=== PATIENT | female | born 1970 | race Two or more races ===

== ENCOUNTER 2017-01-09 20:51 | Emergency (ER) | payer OTHER ==
[~2017-01-09] VITALS: Ht 154.9 cm; Wt 70.0 kg
[2017-01-09 21:17] VITALS: BP 156/68
[2017-01-09 22:15] LABS: Urine Bilirubin Negative (Negative); Urine Color Yellow (Yellow); Urine Glucose Normal (Normal); Urine Ketone Negative (Negative); Urine Nitrite Negative (Negative); Urine RBC 175 /hpf (0 - 4); Urine Squamous Epithelial Cell FEW /hpf (<5); Urine Urobilinogen Normal (Negative); Urine pH 6.5 (5.0-8.0)
[2017-01-09] MEDS ORDERED: cefTRIAXone SOD 1,000 MG VL IM ONE (22:15)
[2017-01-09 22:39] LABS: Urine Blood 2+ /uL (Negative)
== END 2017-01-09 23:30 | disposition home or self-care (01) ==
LOC: ER 20:54
DX: N30.01 Acute cystitis with hematuria (principal)
CPT/HCPCS: 81001; 81025; 96372; 99284; J0696

== ENCOUNTER 2019-10-13 20:33 | Emergency (ER) | payer SELFPAY ==
[~2019-10-13] VITALS: Ht 157.5 cm; Wt 68.5 kg
[2019-10-14] MEDS ORDERED: CLINDAMYCIN 900MG IV 50 ML IV ONE (01:15)
[2019-10-14] MEDS ORDERED: PIPERACILLIN-TAZOB 3.375GM 100 ML IV ONE (01:15)
[2019-10-14 02:04] LABS: Albumin 3.7 g/dL (3.4-5.0); BUN/Creatinine Ratio 24.2; Calcium 8.7 mg/dL (8.5-10.1); Potassium 3.6 mmol/L (3.5-5.1)
[2019-10-14 02:06] LABS: Bilirubin, Total 0.5 mg/dL (0.2-1.0); Total Protein 7.8 g/dL (6.4-8.2)
[2019-10-14 02:08] LABS: Basophils # (auto) 0 10 ^3/uL (0-0.2); Basophils % (auto) 0.4 % (0.0-2.0); Eosinophils # (auto) 0.1 10 ^3/uL (0-0.8); Eosinophils % (auto) 1.8 % (0.0-7.0); Hematocrit 42.4 % (36.0-46.0); Hemoglobin 14.2 g/dL (12.2-16.2); Lymphocytes # (auto) 1.9 10 ^3/uL (0.4-5.4); Lymphocytes % (auto) 27.1 % (10.0-50.0); Mean Corpuscular Hemoglobin 30.3 pg (28.0-32.0); Mean Corpuscular Hgb Conc. 33.6 g/dL (32.0-36.0); Mean Corpuscular Volume 90.4 fL (80.0-100.0); Monocytes # (auto) 0.5 10 ^3/uL (0-1.3); Neutrophils # (auto) 4.4 10 ^3/uL (1.6-8.6); Neutrophils % (auto) 63.7 % (37.0-80.0); Nucleated Red Blood Cells % 0.1 %; Platelet Count (auto) 253 10^3/uL (140-450); Red Cell Distribution Width 13.7 % (11.8-14.3); White Blood Cell 6.9 10^3/uL (4.4-10.8)
[2019-10-14 04:41] VITALS: BP 116/57
[2019-10-14] MEDS ORDERED: TETANUS-DIPTH-ACEL PERTUSSIS 0.5ML SYR Tdap IM ONE (05:00)
== END 2019-10-14 05:08 | disposition short-term general hospital (02) ==
LOC: ER 20:34
DX: L03.115 Cellulitis of right lower limb (principal); E11.9 Type 2 diabetes mellitus without complications; Z79.4 Long term (current) use of insulin
CPT/HCPCS: 36415; 73700; 80053; 85025; 87040; 90471; 90715; 96365; 96366; 96368; 99285; J2543; J3490